=== PATIENT | male | born 1960 | race American Indian/Alaskan Native ===

== ENCOUNTER 2021-06-01 21:58 | Emergency (ER) | payer SELFPAY ==
--- NOTE | 2021-06-01 22:25 | Emergency Department Report ---
ED Seizure HPI - General Chief Complaint: Seizure Stated Complaint: SEIZURE Time Seen by Provider: 06/01/21 22:10 Source: patient, EMS Mode of arrival: Stretcher Limitations: No Limitations - History of Present Illness Initial Comments: 60-year-old male, history of hypertension, diabetes, presents to ED following seizure at home. Patient states that his son was cutting his hair when he began to feel lightheaded. It is reported that patient then had a seizure, unknown duration. Patient positive for urinary incontinence. No previous history of seizure. Patient denies any preceding chest pain, shortness of breath, headache. He denies any recent illness, including fever, cough, abdominal pain, vomiting, diarrhea. Patient denies any headache currently. States he feels like he is back at his baseline. Accu-Chek of 501 with EMS. Patient states he has been noncompliant with his Metformin. States he ran out 1 month ago but was unable to get a refill because he lost his insurance. Patient denies any alcohol use. MD Complaint: seizure -: This evening Description of Episode: loss of consciousness, bladder incontinence Witnessed:: Yes Trauma: No Seizure History: none Place: home Associated Symptoms: denies other symptoms. denies: chest pain, cough, fever/chills, shortness of breath Treatments Prior to Arrival: none - Related Data Previous Rx's Medication Instructions Recorded Last Taken Type metFORMIN [Glucophage] 500 mg PO BID #60 tablet 06/02/21 Unknown Rx Allergies Allergy/AdvReac Type Severity Reaction Status Date / Time No Known Allergies Allergy Unverified 06/01/21 22:11 ED Review of Systems ROS: Stated complaint: SEIZURE Other details as noted in HPI Comment: All other systems reviewed and negative Constitutional: denies: chills, fever Respiratory: denies: cough, shortness of breath Cardiovascular: denies: chest pain, palpitations Gastrointestinal: denies: abdominal pain, nausea, vomiting, diarrhea Neurological: denies: headache ED Past Medical Hx - Medications Home Medications: Home Medications Medication Instructions Recorded Confirmed Last Taken Type metFORMIN [Glucophage] 500 mg PO BID #60 tablet 06/02/21 Unknown Rx ED Physical Exam - General Limitations: No Limitations General appearance: alert, in no apparent distress - Head Head exam: Present: atraumatic, normocephalic - Eye Eye exam: Present: normal appearance, PERRL, EOMI - ENT ENT exam: Present: mucous membranes moist - Neck Neck exam: Present: normal inspection - Respiratory Respiratory exam: Present: normal lung sounds bilaterally. Absent: respiratory distress - Cardiovascular Cardiovascular Exam: Present: normal rhythm, bradycardia - GI/Abdominal GI/Abdominal exam: Present: soft. Absent: distended, tenderness - Extremities Exam Extremities exam: Present: normal inspection - Neurological Exam Neurological exam: Present: alert, oriented X3, CN II-XII intact. Absent: motor sensory deficit - Psychiatric Psychiatric exam: Present: normal affect, normal mood - Skin Skin exam: Present: warm, dry, intact, normal color ED Course Vital Signs 06/01/21 06/01/21 06/01/21 22:10 22:21 22:27 Temperature 98.1 F Pulse Rate 55 L 75 Respiratory 20 17 Rate Blood Pressure Blood Pressure 148/101 159/88 [Left] O2 Sat by Pulse 95 95 94 Oximetry 06/02/21 06/02/21 06/02/21 00:01 00:41 00:51 Temperature Pulse Rate 66 Respiratory 16 14 15 Rate Blood Pressure 150/78 158/66 141/88 Blood Pressure [Left] O2 Sat by Pulse 94 94 95 Oximetry 06/02/21 06/02/21 06/02/21 01:01 01:11 01:21 Temperature Pulse Rate Respiratory 13 18 14 Rate Blood Pressure 141/88 141/88 126/78 Blood Pressure [Left] O2 Sat by Pulse 94 94 95 Oximetry 06/02/21 06/02/21 01:45 01:51 Temperature Pulse Rate Respiratory 13 17 Rate Blood Pressure 126/78 124/82 Blood Pressure [Left] O2 Sat by Pulse 97 94 Oximetry ED Medical Decision Making - Lab Data Result diagrams: 06/01/21 22:55 06/01/21 22:55 - EKG Data -: EKG Interpreted by Nh EKG shows normal: sinus rhythm, axis, intervals, QRS complexes Rate: normal - EKG Data Interpretation: other (Inferior T wave inversions) - Radiology Data Radiology results: report reviewed, image reviewed - Medical Decision Making 60-year-old male presents to ED for new onset seizure. Patient also found to have elevated glucose. Patient does not appear to be in DKA. He is currently back at his baseline, no neurological deficits. CT head is unremarkable. Patient given IV fluids and insulin with improvement of his glucose. Vies patient that he needs to be compliant with his Metformin. Refill given. Hold off on anticonvulsant prescription as this is patient's first seizure. Outpatient follow-up advised with neurologist. Patient advised not to drive or operate heavy machinery until he is cleared by neurologist. Return precautions given. - Differential Diagnosis Seizure, DKA, intracranial abnormality Critical care attestation.: If time is entered above; I have spent that time in minutes in the direct care of this critically ill patient, excluding procedure time. ED Disposition Clinical Impression: Hyperglycemia, Seizure Disposition: 01 HOME / SELF CARE / HOMELESS Is pt being admited?: No Condition: Stable Instructions: Hyperglycemia, [id number], Seizure, Adult, [id number] Prescriptions: metFORMIN [Glucophage] 500 mg PO BID #60 tablet Referrals: PRIMARY MD ELENO [Primary Care Provider] - 3-5 Days [facility] [Provider Group] - 3-5 Days EDGAR PERRY MD [Staff Physician] - 3-5 Days [facility] [Outside] - 3-5 Days Time of Disposition: 02:06
--- NOTE | 2021-06-01 22:56 | Cat Scan Report ---
CT HEAD WITHOUT CONTRAST INDICATION: seizure. TECHNIQUE: All CT scans at this location are performed using CT dose reduction for ALARA by means of automated e xposure control. COMPARISON: None available. FINDINGS: HEMORRHAGE: None. EXTRA-AXIAL SPACES: Normal in size and morphology for the patient's age. VENTRICULAR SYSTEM: Normal in size and morphology for the patient's age. BRAIN PARENCHYMA: No acute findings. MIDLINE SHIFT OR HERNIATION: None. ORBITS: Normal as visualized. SOFT TISSUES OF HEAD: Normal. CALVARIUM: Normal. VISUALIZED PARANASAL SINUSES AND MASTOID AIR CELLS: Clear. ADDITIONAL FINDINGS: None. IMPRESSION: 1. No acute intracranial abnormality. Signer Name: Silviano Agustin MD Signed: 06/01/2021 10:52 PM Workstation Name: [id number]
[2021-06-01 23:08] LABS: Basophils % (Auto) 0.6 % (0.0-1.8); Eosinophils % (Auto) 0.4 % (0.0-4.3); Hematocrit 43.7 % (35.5-45.6); Hemoglobin 14.4 gm/dl (11.8-15.2); Lymphocytes % (Auto) 13.7 % (13.4-35.0); Mean Corpuscular HGB Conc 33 % (32-34); Mean Corpuscular Volume 93 fl (84-94); Monocytes # (Auto) 0.2 K/mm3 (0.0-0.8); Monocytes % (Auto) 2.9 % (0.0-7.3); Platelet Count 239 K/mm3 (140-440); Red Blood Count 4.69 M/mm3 (3.65-5.03); Red Cell Distribution Width 12.9 % (13.2-15.2)
[2021-06-01 23:27] LABS: Alanine Aminotransferase 11 units/L (7-56); Albumin 3.9 g/dL (3.9-5); BUN/Creatinine Ratio 14; Blood Urea Nitrogen 17 mg/dL (9-20); Hemolysis Index 6
[2021-06-01 23:52] LABS: Bilirubin,Direct < 0.2 mg/dL (0-0.2)
[2021-06-02] MEDS ORDERED: SODIUM CHLORIDE 0.9% 1000 ML 1,000 ML IV ONE (00:02)
[2021-06-02] MEDS ORDERED: INSULIN REGULAR, HUMAN 100 UNITS/1 ML IV ONE (00:02)
[2021-06-02 01:59] VITALS: BP 124/82
--- NOTE | 2021-06-02 09:17 | Electrocardiograph Report ---
[facility] Test Date: 2021-06-01 Test Time: 22:50:14 Pat Name: TWIN ALARCON Department: Room: Gender: M Area Supervisor: NURSE : 1960 Requested By: NADIA MOISE Order Number: [id number] Reading MD: Jorge Gregory Measurements Intervals [place] Rate: 68 P: 71 RI: 190 QRS: -51 QRSD: 90 T: -39 QT: 389 QTc: 415 Interpretive Statements Sinus rhythm Left anterior fascicular block Nonspecific T abnormalities, inferior leads No previous ECG available for comparison Electronically Signed On 06-02-2021 9:16:43 EDT by Jorge Gregory
== END 2021-06-02 02:20 | disposition home or self-care (01) ==
LOC: ED 21:58
DX: R73.9 Hyperglycemia, unspecified (principal); R56.9 Unspecified convulsions
CPT/HCPCS: 36415; 70450; 80048; 80076; 82962; 84484; 85025; 93005; 96361; 96374; 99284; J7030; J1815